=== PATIENT | female | born 1950 | race Caucasian/White ===

== ENCOUNTER 2017-09-29 11:02 | Day surgery (SDC) | payer OTHER, BC ==
[~2017-09-29] VITALS: Ht 147.3 cm; Wt 89.4 kg
[~2017-09-29 11:02] MED LIST: ALEVE220 M2 PO; ASPIR-LOW81 MG PO; Aleve PO; FISH OIL 1,2001 EAC1 PO; GLUCOPHAGE1000 MG PO; METFORMIN HCL500 MG PO; SIMVASTATIN20 MG PO; ZETIA10 MG PO
[2017-09-29 11:55] VITALS: BP 137/75
[2017-09-29 17:36] VITALS: BP 133/63
[2017-09-29 19:50] VITALS: BP 152/72
[2017-09-30] VITALS (7 sets, daily range): BP systolic 102–143; BP diastolic 55–72
[2017-09-30 06:19] LABS: HEMATOCRIT 32.7 % (36.0-46.0); HEMOGLOBIN 10.8 G/DL (11.9-15.5); MCH 29.8 PG (29.0-34.0); MCV 90.1 FL (83-99); PLATELET COUNT 185 K/uL (156-360); RBC DIS.WIDTH-SD 43.1 % (39-53); RED BLOOD COUNT 3.63 M/uL (3.80-5.20); WHITE BLOOD COUNT 9.4 K/uL (4.1-10.2)
[2017-09-30 06:45] LABS: ALBUMIN 3.3 G/DL (3.2-4.8); ALKALINE PHOSPHATASE 54 IU/L (3-129); ALT (GPT) 22 IU/L (3-49); AST (GOT) 34 IU/L (2-34); CHLORIDE 106 MEQ/L (99-109); CREATININE 0.7 MG/DL (0.6-1.3); GFR ESTIMATE (CALCULATED) > 59 mL/min/; GLUCOSE 128 mg/dL (70-99); POTASSIUM 4.5 MEQ/L (3.7-5.4); SODIUM 139 MEQ/L (136-147); TOTAL BILIRUBIN 0.4 MG/DL (0.0-1.0); TOTAL PROTEIN 4.9 G/DL (6.4-8.3); UREA NITROGEN (BUN) 11 mg/dL (9-23)
[2017-10-01 06:15] LABS: HEMATOCRIT 31.9 % (36.0-46.0); HEMOGLOBIN 10.3 G/DL (11.9-15.5); MCH 29.3 PG (29.0-34.0); MCHC 32.3 G/DL (30.0-36.0); MCV 90.9 FL (83-99); PLATELET COUNT 166 K/uL (156-360); RBC DIS.WIDTH-CV 13.3 % (11.8-14.6); RBC DIS.WIDTH-SD 44.5 % (39-53); RED BLOOD COUNT 3.51 M/uL (3.80-5.20); WHITE BLOOD COUNT 9.9 K/uL (4.1-10.2)
[2017-10-01 06:47] LABS: ALBUMIN 3.2 G/DL (3.2-4.8); ALKALINE PHOSPHATASE 51 IU/L (3-129); ALT (GPT) 13 IU/L (3-49); AST (GOT) 21 IU/L (2-34); CHLORIDE 103 MEQ/L (99-109); CREATININE 0.7 MG/DL (0.6-1.3); GFR ESTIMATE (CALCULATED) > 59 mL/min/; GLUCOSE 118 mg/dL (70-99); POTASSIUM 4.1 MEQ/L (3.7-5.4); SODIUM 136 MEQ/L (136-147); TOTAL PROTEIN 5.2 G/DL (6.4-8.3); UREA NITROGEN (BUN) 9 mg/dL (9-23)
[2017-10-01 06:49] LABS: TOTAL BILIRUBIN 0.8 MG/DL (0.0-1.0)
[2017-10-01 07:24] VITALS: BP 135/58
[2017-10-01 15:18] VITALS: BP 103/56
[2017-10-01] MEDS ORDERED: NORCO 5/3251 TABLET PO (15:50)
[2017-10-01] MEDS ORDERED: MULTIPLE VITAM1 EAC4 PO (15:54)
[2017-10-01] MEDS ORDERED: DOCUSATE SODIU100 MG PO (15:54)
== END 2017-10-01 17:27 | disposition home or self-care (01) ==
LOC: SDC 11:02 → 2EAST 16:03 → 2SOUTH 16:03 → ENRESERV 16:34 → 2EAST 17:31
PROVIDERS: Thoracic Surgery (Cardiothoracic Vascular Surgery)
PROC: 0FT44ZZ Resection of Gallbladder, Percutaneous Endoscopic Approach (ICD-10-PCS; principal; 2017-09-29)
DX: K80.10 Calculus of gallbladder with chronic cholecystitis without obstruction (principal); E11.9 Type 2 diabetes mellitus without complications; M19.012 Primary osteoarthritis, left shoulder; M19.011 Primary osteoarthritis, right shoulder; I83.90 Asymptomatic varicose veins of unspecified lower extremity; Z82.3 Family history of stroke; Z82.49 Family history of ischemic heart disease and other diseases of the circulatory system; Z83.3 Family history of diabetes mellitus; Z88.2 Allergy status to sulfonamides; Z87.891 Personal history of nicotine dependence; Z79.84 Long term (current) use of oral hypoglycemic drugs
CPT/HCPCS: 80053; 82948; 85027; 88304; 93005; G0378; G8978 GP CK; G8979 GP CI; J0131; J0690; J1100; J1170; J1644; J1815; J2250; J2405; J2710; J3010; J7120; J7643